=== PATIENT | male | born 1980 | race African-American/Black ===

== ENCOUNTER → 2017-11-27 | Outpatient (CLI) | payer BC ==
[~2017-11-27] MED LIST: LEVAQUIN 5500 MG/TAB PO; NO HOME MEDICATIONS; PERCOCET 5/321 UDTAB PO
== END ==
LOC: COL.RAD 16:27
DX: M25.551 Pain in right hip (principal)

== ENCOUNTER → 2019-02-15 | Outpatient (CLI) | payer BC | LOC: COL.RAD 15:18 | DX: M16.11 Unilateral primary osteoarthritis, right hip (principal) ==

== ENCOUNTER → 2019-03-21 | Outpatient (CLI) | payer BC | LOC: COL.RAD 13:00 | DX: M16.0 Bilateral primary osteoarthritis of hip (principal) | CPT/HCPCS: A9585; J3301; Q9967 ==

== ENCOUNTER → 2019-04-18 | Outpatient (CLI) | payer BC | LOC: COL.RAD 07:19 | DX: R94.5 Abnormal results of liver function studies (principal) ==

== ENCOUNTER → 2019-07-01 | Outpatient (CLI) | payer BC | LOC: COL.RAD 10:30 | DX: M25.551 Pain in right hip (principal) | CPT/HCPCS: J3301; Q9967 ==

== ENCOUNTER → 2020-03-19 | Outpatient (CLI) | payer BC | LOC: ZCOL.LAB 15:10 | DX: R05 Cough (principal); R51 Headache; Z20.828 Contact with and (suspected) exposure to other viral communicable diseases ==

== ENCOUNTER → 2020-04-13 | Outpatient (CLI) | payer BC | LOC: COL.RAD 13:48 | DX: M25.551 Pain in right hip (principal) | CPT/HCPCS: J3301; Q9967 ==

== ENCOUNTER → 2020-07-24 | Outpatient (CLI) | payer BC | LOC: COL.RAD 13:11 | DX: M25.551 Pain in right hip (principal) | CPT/HCPCS: J3301; Q9967 ==

== ENCOUNTER → 2021-02-26 | Outpatient (CLI) | payer BC | LOC: COL.RAD 07:29 | DX: M25.551 Pain in right hip (principal) | CPT/HCPCS: J3301; Q9967 ==

== ENCOUNTER → 2021-11-17 | Outpatient (CLI) | payer BC | LOC: COL.RAD 14:00 | DX: M25.551 Pain in right hip (principal) | CPT/HCPCS: J3301 ==

== ENCOUNTER → 2022-03-08 | Outpatient (CLI) | payer BC | LOC: COL.RAD 08:19 | DX: M25.551 Pain in right hip (principal) | CPT/HCPCS: J3301; Q9967 ==